=== PATIENT | female | born 1965 | race Caucasian/White ===

== ENCOUNTER 2018-01-20 23:12 | Emergency (ER) | payer SELFPAY ==
[2018-01-20 23:22] VITALS: BMI 43.0
[2018-01-20] MEDS ORDERED: Albuterol-Ipratrop 3 mg / 0.5 (3 ml) UD IH STA (23:22)
--- NOTE | 2018-01-20 23:22 | ED PDOC ---
Arrival/HPI - General Time Seen by Provider: 01/20/18 23:15 Historian: Patient, Family - History of Present Illness Narrative History of Present Illness (Text): 01/20/18 23:21 Loni Morales is a 52 year old female smoker, whose past medical history includes asthma, who presents to the Emergency department complaining of shortness of breath and wheezing today. Patient reports associated dry cough and congestion. Patient denies any fever, chills, chest pain, nausea, vomiting, diarrhea, urinary symptoms, back pain, neck pain, headache, dizziness, or any other complaints. Symptom Onset: Gradual Symptom Course: Unchanged Activities at Onset: Light Context: Home Past Medical History - Provider Review Nursing Documentation Reviewed: Yes - Psychiatric Hx Substance Use: No Family/Social History - Physician Review Nursing Documentation Reviewed: Yes Family/Social History: Unknown Family HX Smoking Status: Heavy Smoker > 10 Cigarettes Daily Hx Alcohol Use: No Hx Substance Use: No Allergies/Home Meds Allergies/Adverse Reactions: Allergies No Known Allergies Allergy (Verified 01/20/18 23:21) Review of Systems - Physician Review All systems were reviewed & negative as marked: Yes - Review of Systems Constitutional: Normal. absent: Fevers Eyes: Normal ENT: Normal Respiratory: SOB, Cough, Wheezing Cardiovascular: Normal. absent: Chest Pain Gastrointestinal: Normal. absent: Abdominal Pain, Diarrhea, Nausea, Vomiting Genitourinary Female: Normal. absent: Dysuria, Frequency, Hematuria, Urine Output Changes Musculoskeletal: Normal. absent: Back Pain, Neck Pain Skin: Normal. absent: Rash Neurological: Normal. absent: Headache, Dizziness Endocrine: Normal Hemo/Lymphatic: Normal Psychiatric: Normal Physical Exam Vital Signs Reviewed: Yes Vital Signs Temp Pulse Resp BP Pulse Ox 01/21/18 00:05 142/81 01/20/18 23:22 98.4 F 124 H 20 100 Temperature: Afebrile Blood Pressure: Normal Pulse: Regular Respiratory Rate: Normal Appearance: Positive for: Well-Appearing, Non-Toxic, Comfortable Pain Distress: None Mental Status: Positive for: Alert and Oriented X 3 - Systems Exam Head: Present: Atraumatic, Normocephalic Pupils: Present: PERRL Extroacular Muscles: Present: EOMI Conjunctiva: Present: Normal Mouth: Present: Moist Mucous Membranes Neck: Present: Normal Range of Motion Respiratory/Chest: Present: Wheezes (Wheezing bilaterally), Rhonchi (Rhonchi bilaterally). No: Respiratory Distress, Accessory Muscle Use Cardiovascular: Present: Regular Rate and Rhythm, Normal S1, S2. No: Murmurs Abdomen: No: Tenderness, Distention, Peritoneal Signs Back: Present: Normal Inspection Upper Extremity: Present: Normal Inspection. No: Cyanosis, Edema Lower Extremity: Present: Normal Inspection. No: Edema Neurological: Present: GCS=15, CN II-XII Intact, Speech Normal Skin: Present: Warm, Dry, Normal Color. No: Rashes Psychiatric: Present: Alert, Oriented x 3, Normal Insight, Normal Concentration Medical Decision Making ED Course and Treatment: 01/20/18 23:21 Impression: 52 year old female smoker presents for shortness of breath, cough, and congestion today. Differential Diagnosis included but are not limited to: asthma vs. COPD vs. bronchitis Plan: -- Chest X-ray -- Duoneb -- Reassess and disposition Progress Notes: 01/21/18 00:30 Chest X-ray reviewed, shows no acute processes. - RAD Interpretation Radiology Orders: 01/20/18 23:22 CHEST PORTABLE [RAD] Stat - Medication Orders Current Medication Orders: Discontinued Medications Acetaminophen (Tylenol 325mg Tab) 650 mg PO STAT STA Stop: 01/21/18 00:26 Last Admin: 01/21/18 00:28 Dose: 650 mg Albuterol/Ipratropium (Duoneb 3 Mg/0.5 Mg (3 Ml) Ud) 3 ml IH ONCE STA Stop: 01/20/18 23:23 Last Admin: 01/20/18 23:25 Dose: 3 ml - Scribe Statement The provider has reviewed the documentation as recorded by the Jian Sifuentes Provider Scribe Attestation: All medical record entries made by the Scribe were at my direction and personally dictated by me. I have reviewed the chart and agree that the record accurately reflects my personal performance of the history, physical exam, medical decision making, and the department course for this patient. I have also personally directed, reviewed, and agree with the discharge instructions and disposition. Disposition/Present on Arrival - Present on Arrival Any Indicators Present on Arrival: No History of DVT/PE: No History of Uncontrolled Diabetes: No Urinary Catheter: No History Surgical Site Infection Following: None - Disposition Have Diagnosis and Disposition been Completed?: Yes Diagnosis: Asthma, Bronchitis Disposition: HOME/ ROUTINE Disposition Time: 02:16 Patient Plan: Discharge Condition: GOOD Discharge Instructions (ExitCare): Acute Bronchitis, Asthma, Adult (DC) Additional Instructions: Take meds as prescribed/follow up with your doctor this week Prescriptions: Albuterol HFA [Ventolin HFA 90 mcg/actuation (8 g)] 2 puff IH [id number] PRN #1 puff PRN Reason: Wheezing Azithromycin [Zithromax] 250 mg PO DAILY #6 tab
[2018-01-20] MEDS ORDERED: Albuterol-Ipratrop 3 mg / 0.5 (3 ml) UD ONE (23:24)
[2018-01-20 23:25] VITALS: PULSE 124; RESP 20; TEMP 98.4; O2SAT 100
[2018-01-21 00:06] VITALS: BP 142/81
--- NOTE | 2018-01-21 09:24 | RAD ---
HISTORY: cough COMPARISON: No prior. FINDINGS: LUNGS: No active pulmonary disease. PLEURA: No significant pleural effusion identified, no pneumothorax apparent. CARDIOVASCULAR: Normal. OSSEOUS STRUCTURES: No significant abnormalities. VISUALIZED UPPER ABDOMEN: Normal. OTHER FINDINGS: None. IMPRESSION: No active disease.
== END 2018-01-21 02:24 | disposition home or self-care (01) ==
LOC: ED 23:12
DX: J45.909 Unspecified asthma, uncomplicated (principal); F17.210 Nicotine dependence, cigarettes, uncomplicated

== ENCOUNTER 2018-09-15 11:57 | Emergency (ER) | payer OTHER, SELFPAY ==
[2018-09-15 11:58] VITALS: BMI 43.0
[2018-09-15 12:20] VITALS: PULSE 88; RESP 18
--- NOTE | 2018-09-15 13:51 | ED PDOC ---
Arrival/HPI - General Chief Complaint: Abnormal Skin Integrity Time Seen by Provider: 09/15/18 12:25 Historian: Patient - History of Present Illness Narrative History of Present Illness (Text): 09/15/18 17:43 52-year-old female presents today with a five-year history of intermittent pruritic rash to the chest neck and scalp line. Patient denies new soaps lotions detergents or perfumes. Patient states she has been having pruritus and an erythematous rash which usually worsens whenever she wears wool. Patient denies chest pain or shortness of breath. Denies fevers or chills. No dizziness or weakness. Patient states this has been ongoing for 5 years and she has tried some permethrin cream that her friend gave her for treatment without improvement Time/Duration: Other (5 years) Symptom Course: Intermittent Past Medical History - Provider Review Nursing Documentation Reviewed: Yes - Travel History Have you recently traveled outside [place] w/in the past 3 mons?: No - Psychiatric Hx Substance Use: No - Anesthesia Hx Anesthesia: No Family/Social History - Physician Review Nursing Documentation Reviewed: Yes Family/Social History: Unknown Family HX Smoking Status: Light Smoker < 10 Cigarettes Daily Hx Alcohol Use: No Hx Substance Use: No Allergies/Home Meds Allergies/Adverse Reactions: Allergies No Known Allergies Allergy (Verified 09/15/18 12:20) Home Medications: Home Meds Medication Instructions Recorded Confirmed Fexofenadine HCl [Wal-Fex Allergy] 180 mg PO DAILY 09/15/18 09/15/18 Review of Systems - Review of Systems Constitutional: absent: Fatigue, Fevers Respiratory: absent: SOB, Cough Cardiovascular: absent: Chest Pain, Palpitations Gastrointestinal: absent: Abdominal Pain, Nausea, Vomiting Musculoskeletal: absent: Arthralgias, Back Pain, Neck Pain Skin: Rash, Pruritis Neurological: absent: Headache, Dizziness Psychiatric: absent: Anxiety, Depression Physical Exam Vital Signs Reviewed: Yes Vital Signs Temp Pulse Resp BP Pulse Ox 09/15/18 12:17 98.2 F 88 18 115/75 98 Temperature: Afebrile Blood Pressure: Normal Pulse: Regular Respiratory Rate: Normal Appearance: Positive for: Well-Appearing, Non-Toxic, Comfortable Pain Distress: None Mental Status: Positive for: Alert and Oriented X 3 - Systems Exam Head: Present: Atraumatic Mouth: Present: Moist Mucous Membranes Neck: Present: Normal Range of Motion Respiratory/Chest: Present: Clear to Auscultation, Good Air Exchange. No: Respiratory Distress, Accessory Muscle Use Cardiovascular: Present: Regular Rate and Rhythm, Normal S1, S2. No: Murmurs Upper Extremity: Present: Normal ROM Lower Extremity: Present: Normal ROM Neurological: Present: GCS=15, Speech Normal Skin: Present: Warm, Dry, Rashes (there is lichinification noted to the posterior neck at scalp line without erythema. ), Normal Color Psychiatric: Present: Alert, Oriented x 3 Medical Decision Making ED Course and Treatment: 09/15/18 17:48 Patient is nontoxic well-appearing in no distress with stable vital signs no angioedema. Lungs are clear to auscultation bilaterally there is no wheezing noted. The airway is patent Pepcid and Benadryl given by mouth I advised taking Benadryl every 6 hours as needed for itch. advised patient to take hydrocortisone cream to the affected areas and the patient was advised not to use the permethrin cream. Advised patient to follow up with primary care physician within the next 2 days and return if symptoms worsen persist or if new symptoms develop. Patient was advised to follow-up with the ug designer Patient verbalizes understanding of discharge instructions and need for immediate followup. Impression :Rash Benadryl every 6 hours as needed for itch hydrocortisone cream twice daily to the affected area Pepcid one tablet daily Follow up with the primary care physician within the next 2 days Follow-up with the ug designer within the next 2 days Return if symptoms worsen persist or if new symptoms develop: Shortness of breath, feeling of throat closing, difficulty speaking or any other concerning symptoms develop Disposition/Present on Arrival - Present on Arrival Any Indicators Present on Arrival: No History of DVT/PE: No History of Uncontrolled Diabetes: No Urinary Catheter: No History of Decub. Ulcer: No History Surgical Site Infection Following: None - Disposition Have Diagnosis and Disposition been Completed?: Yes Diagnosis: Contact dermatitis, Rash Disposition: HOME/ ROUTINE Disposition Time: 13:20 Patient Plan: Discharge Condition: GOOD Discharge Instructions (ExitCare): Skin Rash Additional Instructions: Benadryl every 6 hours as needed for itch hydrocortisone cream twice daily to the affected area Pepcid one tablet daily Follow up with the primary care physician within the next 2 days Follow-up with the ug designer within the next 2 days Return if symptoms worsen persist or if new symptoms develop: Shortness of breath, feeling of throat closing, difficulty speaking or any other concerning symptoms develop Prescriptions: DiphenhydrAMINE [Benadryl] 25 mg PO Q6H #20 cap Famotidine [Pepcid] 20 mg PO DAILY #30 tab Hydrocortisone 1% Cream [Cortizone 1% Cream] 1 appl TP BID #1 tube Referrals: Yolanda Steiner MD [Medical Doctor] - Follow up with primary Otis Finn MD [Staff Provider] - Follow up with primary [facility] [Outside] - Follow up with primary Forms: [employer] (Swazi)
[2018-09-15 14:12] VITALS: BP 119/63; TEMP 98; O2SAT 97
== END 2018-09-15 14:13 | disposition home or self-care (01) ==
LOC: ED 11:57
DX: L25.9 Unspecified contact dermatitis, unspecified cause (principal); R21 Rash and other nonspecific skin eruption; F17.210 Nicotine dependence, cigarettes, uncomplicated

== ENCOUNTER 2018-11-29 06:35 | Emergency (ER) | payer SELFPAY ==
[2018-11-29 06:36] VITALS: BMI 43.0
[2018-11-29] MEDS ORDERED: Albuterol-Ipratrop 3 mg / 0.5 (3 ml) UD IH STA (07:21)
--- NOTE | 2018-11-29 07:26 | ED PDOC ---
Arrival/HPI - General Chief Complaint: Shortness Of Breath Time Seen by Provider: 11/29/18 07:06 Historian: Patient, Family (Daughter) - History of Present Illness Narrative History of Present Illness (Text): 11/29/18 07:22 A 53 year old female, with a history of smoking, presents to the emergency department with complaints of congestion, cough, sore throat, and difficulty taking deep breaths. Patient is Icelandic speaking, daughter at bedside served as graining press operator with patient's permission. Patient states that she has been experiencing the sore throat, nasal congestion, cough, sneezing, and difficulty taking deep breaths for the past 3 days. Patient reports fever 3 days ago and mid-sternal chest discomfort that began today. Son, who is also at bedside, notes that he was recently sick with similar symptoms. The patient denies headache, dyspnea on exertion, abdominal pain, nausea, vomiting, diarrhea, back pain, neck pain, urinary/bowel changes, or any other complaint. PMD: None Time/Duration: Other (3 days) Symptom Onset: Sudden Symptom Course: Unchanged Activities at Onset: Rest, Light Context: Home Past Medical History - Provider Review Nursing Documentation Reviewed: Yes - Infectious Disease Hx of Infectious Diseases: None - Psychiatric Hx Substance Use: No - Anesthesia Hx Anesthesia: No Family/Social History - Physician Review Nursing Documentation Reviewed: Yes Family/Social History: No Known Family HX Smoking Status: Heavy Smoker > 10 Cigarettes Daily Hx Alcohol Use: No Hx Substance Use: No Allergies/Home Meds Allergies/Adverse Reactions: Allergies No Known Allergies Allergy (Verified 09/15/18 12:20) Home Medications: Home Meds Medication Instructions Recorded Confirmed Fexofenadine HCl [Wal-Fex Allergy] 180 mg PO DAILY 09/15/18 09/15/18 Review of Systems - Physician Review All systems were reviewed & negative as marked: Yes - Review of Systems Constitutional: Fevers ENT: Sore Throat Respiratory: SOB, Cough Cardiovascular: Chest Pain (mid- sternal chest discomfort.) Gastrointestinal: absent: Abdominal Pain, Stool Changes, Diarrhea, Nausea, Vomiting Genitourinary Female: absent: Urine Output Changes Musculoskeletal: absent: Back Pain, Neck Pain Neurological: absent: Headache Physical Exam Vital Signs Reviewed: Yes Vital Signs Temp Pulse Resp BP Pulse Ox 11/29/18 06:45 98.1 F 90 18 121/68 100 Temperature: Afebrile Blood Pressure: Normal Pulse: Regular Respiratory Rate: Normal Appearance: Positive for: Well-Appearing, Non-Toxic, Comfortable Pain Distress: None Mental Status: Positive for: Alert and Oriented X 3 - Systems Exam Head: Present: Atraumatic, Normocephalic Pupils: Present: PERRL Extroacular Muscles: Present: EOMI Conjunctiva: Present: Normal Mouth: Present: Moist Mucous Membranes Nose (Internal): Present: Other (Dry mucous in nares) Neck: Present: Normal Range of Motion Respiratory/Chest: Present: Clear to Auscultation, Good Air Exchange, Other (Cough). No: Respiratory Distress, Accessory Muscle Use Cardiovascular: Present: Regular Rate and Rhythm, Normal S1, S2. No: Murmurs Abdomen: No: Tenderness, Distention, Peritoneal Signs Back: Present: Normal Inspection Upper Extremity: Present: Normal Inspection. No: Cyanosis, Edema Lower Extremity: Present: Normal Inspection. No: Edema Neurological: Present: GCS=15, CN II-XII Intact, Speech Normal Skin: Present: Warm, Dry, Normal Color. No: Rashes Psychiatric: Present: Alert, Oriented x 3, Normal Insight, Normal Concentration Medical Decision Making ED Course and Treatment: 11/29/18 07:33 Impression: A 53 year old female presents to the emergency department with a complaint of 3 day duration nasal congestion, fever, cough, sore throat, and sneeze. Differential Diagnosis included but are not limited to: viral bronchitis, influenza r/o PNA Plan: -- Chest X-ray -- Duoneb and Motrin -- Reassess and disposition Progress Notes: 11/29/18 08:28: Chest X-ray read and interpreted by me shows no PNA. On re-evaluation, patient feels better and is in no acute distress. Denies SOB. No w/r/r on lung exam. No respiratory distress. I have discussed the results and plan with the patient, who expresses understanding. Patient in agreement with plan to be discharged home. Patient is stable for discharge. Patient was instructed to follow up with physician or return if symptoms worsen or new concerning symptoms arise. - RAD Interpretation Radiology Orders: 11/29/18 07:21 CHEST TWO VIEWS (PA/LAT) [RAD] Stat - Scribe Statement The provider has reviewed the documentation as recorded by the Scribe Amanda Jorgensen Provider Scribe Attestation: All medical record entries made by the Scribe were at my direction and personally dictated by me. I have reviewed the chart and agree that the record accurately reflects my personal performance of the history, physical exam, medical decision making, and the department course for this patient. I have also personally directed, reviewed, and agree with the discharge instructions and disposition. Disposition/Present on Arrival - Present on Arrival Any Indicators Present on Arrival: No History of DVT/PE: No History of Uncontrolled Diabetes: No Urinary Catheter: No History of Decub. Ulcer: No History Surgical Site Infection Following: None - Disposition Have Diagnosis and Disposition been Completed?: Yes Diagnosis: Viral bronchitis Disposition: HOME/ ROUTINE Disposition Time: 08:49 Patient Plan: Discharge Condition: IMPROVED Discharge Instructions (ExitCare): Acute Bronchitis Additional Instructions: ELANA JHAVERI, thank you for letting us take care of you today. Your provider was Blane Soler DO and you were treated for Viral Bronchitis. The emergency medical care you received today was directed at your acute symptoms. If you were prescribed any medication, please fill it and take as directed. It may take several days for your symptoms to resolve. Return to the Emergency Department if your symptoms worsen, do not improve, or if you have any other problems. Please contact your doctor or call one of the physicians/clinics you have been referred to that are listed on the Patient Visit Information form that is included in your discharge packet. Bring any paperwork you were given at discharge with you along with any medications you are taking to your follow up visit. Our treatment cannot replace ongoing medical care by a primary care provider outside of the emergency department. Thank you for allowing the [facility] team to be part of your care today. If you had an X-Ray or CT scan: A Radiologist will review the ED reading if any change in treatment is needed we will contact you. If you had a blood, urine, or wound culture: It will take several days for the results, if any change in treatment is needed we will contact you. If you had an STI test: It will take 48 hours for the results. Please call after 1 week if you have not heard back. Prescriptions: Albuterol HFA [Ventolin HFA 90 mcg/actuation (8 g)] 2 puff IH Q4 #1 puff Guaifenesin/Dextromethorphan [Robitussin Cough-Chest Dm Liq] 10 ml PO Q8H #1 liquid Ibuprofen [Motrin] 600 mg PO Q6 PRN #30 tab PRN Reason: Pain, Moderate (4-7) Referrals: [facility] [Outside] - Follow up with primary Yolanda Steiner MD [Medical Doctor] - Follow up with primary Forms: [employer] (Hungarian)
[2018-11-29 08:51] VITALS: BP 132/70; PULSE 72; RESP 18; TEMP 98.3; O2SAT 99
--- NOTE | 2018-11-29 09:30 | RAD ---
Date of service: 11/29/2018 HISTORY: cough r/o pna COMPARISON: 01/21/2018 TECHNIQUE: Chest PA and lateral FINDINGS: LUNGS: No active pulmonary disease. PLEURA: No significant pleural effusion identified. No pneumothorax apparent. CARDIOVASCULAR: No aortic atherosclerotic calcification present. Normal cardiac size. No pulmonary vascular congestion. OSSEOUS STRUCTURES: No significant abnormalities. VISUALIZED UPPER ABDOMEN: Normal. OTHER FINDINGS: None. IMPRESSION: No active disease.
--- NOTE | 2018-12-01 07:53 | CARD ---
APPROVED REPORT Date of service: 11/29/2018 EKG Measurement Heart [id number] NM [id number] <Conclusion> Normal sinus rhythm Possible Left atrial enlargement Nonspecific T wave abnormality Abnormal ECG
== END 2018-11-29 08:49 | disposition home or self-care (01) ==
LOC: ED 06:35
DX: J20.8 Acute bronchitis due to other specified organisms (principal); F17.210 Nicotine dependence, cigarettes, uncomplicated

== ENCOUNTER 2019-01-14 09:42 | Emergency (ER) | payer SELFPAY ==
[2019-01-14 10:04] VITALS: BMI 34.5
[2019-01-14 10:07] VITALS: RESP 16
[2019-01-14] MEDS ORDERED: Sodium Chloride 0.9% 1,000 ML IV SCH (10:30)
--- NOTE | 2019-01-14 10:40 | ED PDOC ---
Arrival/HPI - General Historian: Patient - History of Present Illness Narrative History of Present Illness (Text): Patient is a 53 year old female with history of tobacco abuse presenting with chief complaint of blood in the stool beginning 10 days prior. Patient states she has been having blood in her bowel movements 1-2 times a day. Also admits to left sided abdominal pain, epigastric discomfort, vomiting. Denies any history of endoscopies or colonscopies. Denies fevers, chills, chest pain, shortness of breath, diarrhea, dysuria. Time/Duration: > week Symptom Onset: Sudden Symptom Course: Unchanged Context: Home <Kelvin Real - Last Filed: 01/14/19 12:50> <Luis Pascal - Last Filed: 01/14/19 15:11> - General Chief Complaint: GI Problem Time Seen by Provider: 01/14/19 09:44 Past Medical History - Provider Review Nursing Documentation Reviewed: Yes - Infectious Disease Hx of Infectious Diseases: None - Cardiac Hx Cardiac Disorders: No - Integumentary Hx Dermatological Disorder: Yes - Gastrointestinal Hx Gastrointestinal Disorders: Yes - Psychiatric Hx Psychophysiologic Disorder: No Hx Substance Use: No - Anesthesia Hx Anesthesia: No <Kelvin Real - Last Filed: 01/14/19 12:50> Family/Social History - Physician Review Nursing Documentation Reviewed: Yes Family/Social History: Other (father is on dialysis ) Smoking Status: Light Smoker < 10 Cigarettes Daily Hx Alcohol Use: No Hx Substance Use: No <Kelvin Real - Last Filed: 01/14/19 12:50> Allergies/Home Meds <Kelvin Real - Last Filed: 01/14/19 12:50> <Luis Pascal - Last Filed: 01/14/19 15:11> Allergies/Adverse Reactions: Allergies No Known Allergies Allergy (Verified 09/15/18 12:20) Home Medications: Home Meds Medication Instructions Recorded Confirmed Fexofenadine HCl [Wal-Fex Allergy] 180 mg PO DAILY 09/15/18 09/15/18 Review of Systems - Physician Review All systems were reviewed & negative as marked: Yes - Review of Systems Respiratory: Normal Cardiovascular: Normal Gastrointestinal: Abdominal Pain, Vomiting, Hematochezia. absent: Diarrhea Genitourinary Female: Normal <Kelvin Real - Last Filed: 01/14/19 12:50> Physical Exam Vital Signs Reviewed: Yes Vital Signs Temp Pulse Resp BP Pulse Ox 01/14/19 10:04 98.9 F 81 16 108/68 95 Temperature: Afebrile Blood Pressure: Normal Pulse: Regular Respiratory Rate: Normal Appearance: Positive for: Well-Appearing, Comfortable Pain Distress: None Mental Status: Positive for: Alert and Oriented X 3 - Systems Exam Head: Present: Atraumatic, Normocephalic Pupils: Present: PERRL Extroacular Muscles: Present: EOMI Conjunctiva: Present: Normal Mouth: Present: Moist Mucous Membranes Respiratory/Chest: Present: Clear to Auscultation, Good Air Exchange. No: Respiratory Distress, Accessory Muscle Use Cardiovascular: Present: Regular Rate and Rhythm, Normal S1, S2. No: Tachycardic Abdomen: Present: Normal Bowel Sounds. No: Tenderness, Distention, Rebound, Guarding Rectal: Present: Normal Rectal Tone. No: Occult Blood, Rectal Tenderness, Gross Blood, Hemorrhoids, Nodule/Mass/Lesions Lower Extremity: Present: Normal Inspection. No: Edema Neurological: Present: GCS=15, CN II-XII Intact, Speech Normal Skin: Present: Warm, Dry, Rashes, Normal Color Psychiatric: Present: Alert, Oriented x 3 <Kelvin Real - Last Filed: 01/14/19 12:50> Vital Signs Temp Pulse Resp BP Pulse Ox 01/14/19 10:04 98.9 F 81 16 108/68 95 <Luis Pascal - Last Filed: 01/14/19 15:11> Medical Decision Making ED Course and Treatment: Impression: 53 year old female with hematochezia Plan: - CBC, CMP - lipase - CT abd/pelvis with IV contrast - Urinalysis - IVF - Reassess and disposition Prior Visits: Notes and results from previous visits were reviewed. Progress Notes: Labs and imaging reviewed. Patient hemodynamically stable, optimized for discharge. Patient instructed to follow up with primary medical doctor, urologist, and library technician. Patient expresses understanding and is in agreement with plan of management. - RAD Interpretation Radiology Orders: 01/14/19 10:16 ABD & PELVIS IV CONTRAST ONLY [CT] Stat - Medication Orders Current Medication Orders: Sodium Chloride (Sodium Chloride 0.9%) 1,000 mls @ 100 mls/hr IV .Q10H JODY <Real,Agape L - Last Filed: 01/14/19 12:50> ED Course and Treatment: 01/14/19 10:59 A 53 year old female who presents to the ED with a complaint of 10 day duration bloody stools, associated left sided abdominal discomfort and vomiting. In agreement with resident note, which includes further HPI details. Patient was seen and evaluated with resident, came up with plan and treatment together - Lab Interpretations Lab Results: Total Bilirubin 0.3 mg/dL (0.2-1.3) 01/14/19 10:36 AST 24 U/L (14-36) 01/14/19 10:36 ALT 25 U/L (7-56) 01/14/19 10:36 Alkaline Phosphatase 64 U/L (38-126) 01/14/19 10:36 Total Protein 7.3 g/dL (5.8-8.3) 01/14/19 10:36 Albumin 4.1 g/dL (3.0-4.8) 01/14/19 10:36 Globulin 3.2 gm/dL 01/14/19 10:36 Albumin/Globulin Ratio 1.3 (1.1-1.8) 01/14/19 10:36 Lipase 71 U/L (23-300) 01/14/19 10:36 - RAD Interpretation Radiology Orders: 01/14/19 10:16 ABD & PELVIS IV CONTRAST ONLY [CT] Stat - Medication Orders Current Medication Orders: Sodium Chloride (Sodium Chloride 0.9%) 1,000 mls @ 100 mls/hr IV .Q10H JODY Last Admin: 01/14/19 10:49 Dose: 100 mls/hr eMAR Start Stop Document 01/14/19 10:49 MA (Rec: 01/14/19 10:49 [place] [id number] Intravenous Solution Start Date 01/14/19 Start Time 10:49 <Luis Pascal - Last Filed: 01/14/19 15:11> - PA / RESEARCH ASSISTANT MEMBER / Resident Statement JACK has reviewed & agrees with the documentation as recorded. JACK has examined the patient and agrees with the treatment plan. (53 yr old female p/w bloody stool and abd pain. No blood thinner usage. LLq pain. No vaginal d/c or rash. No chest pain or shortness of breath. No fever, chills or night sweats. No fall or trauma. Guaic negative, on exam, mild tenderness which improved to no tenderness on serial exams. CT and H&H unremarakble, pt was given follow up w/ uro for hematuria and with GI for possible gi bleed. Pt agreeable to plan) - Scribe Statement The provider has reviewed the documentation as recorded by the Scribe Amanda Jorgensen Provider Scribe Attestation: All medical record entries made by the Scribe were at my direction and personally dictated by me. I have reviewed the chart and agree that the record accurately reflects my personal performance of the history, physical exam, medical decision making, and the department course for this patient. I have also personally directed, reviewed, and agree with the discharge instructions and disposition. <Luis Pascal - Last Filed: 01/14/19 15:11> Disposition/Present on Arrival - Present on Arrival Any Indicators Present on Arrival: No History of DVT/PE: No History of Uncontrolled Diabetes: No Urinary Catheter: No History of Decub. Ulcer: No History Surgical Site Infection Following: None - Disposition Have Diagnosis and Disposition been Completed?: Yes Disposition Time: 12:30 <Kelvin Real - Last Filed: 01/14/19 12:50> <Luis Pascal - Last Filed: 01/14/19 15:11> - Disposition Diagnosis: Diarrhea, Hematuria Disposition: HOME/ ROUTINE Condition: STABLE Discharge Instructions (ExitCare): Diarrhea in Adolescents and Adults Additional Instructions: Follow up with your primary medical doctor within one week. You will need referrals for a library technician and urologist. Drink plenty of fluids and stay hydrated. Return to ED if symptoms return or worsen. Referrals: Hussein Stanton MD [Staff Provider] - Follow up with primary Nasir Song MD [Staff Provider] - [facility] up with primary [facility] - Follow up with primary Forms: Alekto (British)
[2019-01-14 10:45] LABS: BASO # 0.04 K/mm3 (0.0-2.0); BASO % 1.2 % (0.0-3.0); EOS # 0.5 (0.0-0.7); EOS % 14.6 % (1.5-5.0); HEMOGLOBIN 13.3 g/dL (12.0-16.0); LYMPH # 1.4 (1.2-3.4); LYMPH % 41.7 % (22.0-35.0); MEAN CELL VOLUME 90.6 fl (80.0-105.0); MEAN CORPUSCULAR HEMOGLOBIN 30.4 pg (25.0-35.0); MEAN CORPUSCULAR HGB CONC 33.5 g/dl (31.0-37.0); MEAN PLATELET VOLUME 9.5 fl (7.0-11.0); MONO # 0.3 (0.1-0.6); MONO % 9.2 % (1.0-6.0); RBC 4.38 10^6/uL (3.5-6.1); RED CELL DISTRIBUTION WIDTH 12.8 % (11.5-14.5); WHITE BLOOD COUNT 3.4 10^3/uL (4.5-11.0)
[2019-01-14 10:55] LABS: ALB/GLOB RATIO 1.3 (1.1-1.8); ALBUMIN 4.1 g/dL (3.0-4.8); ALT/SGPT 25 U/L (7-56); AST/SGOT 24 U/L (14-36); BLOOD UREA NITROGEN 10 mg/dL (7-21); CALCIUM 9.5 mg/dL (8.4-10.5); GFR NON-AFRICAN AMERICAN > 60; LIPASE 71 U/L (23-300)
[2019-01-14 11:37] VITALS: PULSE 76
--- NOTE | 2019-01-14 11:50 | CT ---
Date of service: 01/14/2019 PROCEDURE: CT Abdomen and Pelvis with contrast HISTORY: abd pain, hematochezia COMPARISON: None. TECHNIQUE: Contrast dose: 150 cc of Omni 350 Radiation dose: Total exam DLP = 1046.17 mGy-cm. This CT exam was performed using one or more of the following dose reduction techniques: Automated exposure control, adjustment of the mA and/or kV according to patient size, and/or use of iterative reconstruction technique. FINDINGS: LOWER THORAX: Unremarkable. LIVER: Unremarkable. No gross lesion or ductal dilatation. GALLBLADDER AND BILE DUCTS: Unremarkable. PANCREAS: Unremarkable. No gross lesion or ductal dilatation. SPLEEN: Unremarkable. ADRENALS: Unremarkable. No mass. KIDNEYS AND URETERS: Unremarkable. No hydronephrosis. No solid mass. VASCULATURE: Unremarkable. No aortic aneurysm. No aortic atherosclerotic calcification or mural plaque present. BOWEL: Unremarkable. No obstruction. No gross mural thickening. APPENDIX: Normal appendix. PERITONEUM: Unremarkable. No free fluid. No free air. LYMPH NODES: Unremarkable. No enlarged lymph nodes. BLADDER: Unremarkable. REPRODUCTIVE: Unremarkable. BONES: No acute fracture. OTHER FINDINGS: None. IMPRESSION: Unremarkable contrast enhanced CT of the abdomen and pelvis.
[2019-01-14 11:51] LABS: URINE BILIRUBIN NEGATIVE (NEGATIVE); URINE BLOOD SMALL (NEGATIVE); URINE GLUCOSE (UA) NEGATIVE (NEGATIVE); URINE LEUKOCYTE ESTERASE NEGATIVE Leu/uL (NEGATIVE); URINE PROTEIN NEGATIVE mg/dL (<30 mg/dL); URINE UROBILINOGEN 0.2 E.U./dL (<1 E.U./dL)
[2019-01-14 11:52] LABS: URINE APPEARANCE CLEAR (CLEAR); URINE COLOR YELLOW (YELLOW)
[2019-01-14 11:58] LABS: URINE BACTERIA FEW /hpf; URINE WBC 0 - 2 /hpf (0-6)
[2019-01-14 13:01] VITALS: BP 110/86; TEMP 98.2; O2SAT 99
--- NOTE | 2019-01-14 20:39 | CARD ---
APPROVED REPORT Date of service: 01/14/2019 EKG Measurement Heart [id number] <Conclusion> Normal sinus rhythm Low voltage QRS Slow R wave progression V1-3 CCR Abnormal ECG
== END 2019-01-14 12:59 | disposition home or self-care (01) ==
LOC: ED 09:42
DX: R31.9 Hematuria, unspecified (principal); R19.7 Diarrhea, unspecified
CPT/HCPCS: 74177; 80053; 81001; 83690; 83735; 84100; 85025; 93005; 99284; J7030; Q9967